=== PATIENT | male | born 1995 | race Two or more races ===

== ENCOUNTER 2019-07-22 20:38 | Emergency (ER) | payer MEDICAID, OTHER ==
[~2019-07-22] VITALS: Ht 182.9 cm; Wt 79.4 kg
--- NOTE | 2019-07-22 21:15 | NUR ---
PT BIBSELF C/O HEADACHE, NAUSEA WITH LIP NUMBNESS AND L ARM NUMBNESS SINCE 1830. PT STATES THAT IT HAS RESOLVED SINCE. DENIES HEAD TRAUMA. PT ADMITS TO HAVING ALCOHOL AND SMOKING MARIJUANA PRIOR TO ARRIVAL. PT AOX4. NAD NOTED. RESP EVEN AND UNLABORED. PT ON MONITOR IN BED 16. WILL CONTINUE TO MONITOR.
--- NOTE | 2019-07-22 22:14 | NUR ---
PT TAKEN TO RADIOLOGY VIA [facility]
[2019-07-22] MEDS ORDERED: METOCLOPRAMIDE HCL 10 MG/2 ML VIAL ONE (22:19)
[2019-07-22] MEDS ORDERED: diphenhydrAMINE HCL 50 MG/ML VIAL ONE (22:19)
[2019-07-22] MEDS ORDERED: KETOROLAC TROMETHAMINE 15 MG/ML VIAL ONE (22:19)
[2019-07-22] MEDS ORDERED: diphenhydrAMINE HCL 50 MG/ML VIAL IV ONE (22:30)
[2019-07-22] MEDS ORDERED: METOCLOPRAMIDE HCL 10 MG/2 ML VIAL IV ONE (22:30)
[2019-07-22] MEDS ORDERED: KETOROLAC TROMETHAMINE INJ 30 MG/ML VIAL IV ONE (22:30)
[2019-07-22] MEDS ORDERED: IV NS 0.9% 1,000 ML IV PRN (22:30)
[2019-07-22 23:30] VITALS: BP 128/68
--- NOTE | 2019-07-22 23:30 | NUR ---
IV removed. Catheter intact and site benign. Pressure and 4x4 applied to site. No bleeding noted.Patient discharged to home in stable condition. Written and verbal after care instructions given. Patient verbalizes understanding of instruction. PT AMBULATORY WITH STEADY GAIT.
== END 2019-07-22 23:44 | disposition home or self-care (01) ==
LOC: ER 20:42
DX: R51 Headache (principal); R20.2 Paresthesia of skin; R11.2 Nausea with vomiting, unspecified
CPT/HCPCS: 70450; 96361; 96374; 96375; 99284; J1200; J1885; J2765; J7030